=== PATIENT | male | born 1975 | race Hispanic/Latino ===

== ENCOUNTER → 2020-11-08 | Day surgery (SDC) | payer MEDICARE ==
[2020-11-05 08:29] LABS: BASOPHILS % 0.6 % (0.0-1.0); EOSINOPHILS # (AUTO) 0.1 (0.0-0.4); EOSINOPHILS % 1.7 % (0.0-6.0); LYMPHOCYTES # (AUTO) 1.7 (1.0-3.2); LYMPHOCYTES % 23.9 % (18.0-39.1); MEAN CORPUSCULAR HEMOGLOBIN 32.6 pg (28-32); MEAN CORPUSCULAR HGB CONC 31.7 g/dL (31-35); MEAN CORPUSCULAR VOLUME 102.8 fL (81-99); MONOCYTES # (AUTO) 0.7 (0.2-0.8); MONOCYTES % 9.7 % (4.4-11.3); NEUTROPHILS # (AUTO) 4.6 (2.1-6.9); PLATELET COUNT 176 x10e3/uL (140-360); RED BLOOD COUNT 3.99 x10e6/uL (4.3-5.7); RED CELL DISTRIBUTION WIDTH 14.4 % (11.7-14.4)
[2020-11-05 09:14] LABS: INR 0.96; PROTHROMBIN TIME 13.3 seconds (11.9-14.5)
[2020-11-05 09:15] LABS: PARTIAL THROMBOPLASTIN TIME 29.2 seconds (23.8-35.5)
[2020-11-05 09:24] LABS: ALBUMIN 3.5 g/dL (3.5-5.0); ALBUMIN/GLOBULIN RATIO 0.9 (0.8-2.0); ANION GAP 20.1 mmol/L (8-16); CREATININE, SERUM 10.85 mg/dL (0.72-1.25); POTASSIUM 5.1 mmol/L (3.5-5.1)
[2020-11-05 09:33] LABS: CALCIUM 8.8 mg/dL (8.4-10.2)
[~2020-11-08] VITALS: Ht 170.2 cm; Wt 83.9 kg
[2020-11-08] VITALS (12 sets, daily range): BP systolic 106–134; BP diastolic 61–84
[~2020-11-08] MED LIST: AMLODIPINE BESY10 MG PO; ASPIRIN 325 MG TAB ONE; ASPIRIN81 M2 PO; BIVALRIUDIN 250 MG/VIAL VIAL IV ONE; CALCIUM ACETAT667 MG PO; CLOPIDOGREL BISULFATE 75 MG TAB ONE; FENTANYL CITRATE/PF 100MCG/2 ML INJ ONE; FUROSEMIDE40 MG PO; IOPAMIDOL 300MG/ML 100 ML INFUS..BTL IV ONE; LIDOCAINE HCL 2% LOCAL 20 ML VIAL ONE; LIPITOR20 MG; METOCLOPRAMIDE10 MG PO; METOPROLOL SUCC50 MG PO; MIDAZOLAM HCL 2 MG/2 ML VIAL ONE; NEURONTIN300 MG PO; PIOGLITAZONE HC45 MG PO; RENVELA0.8 GM PO; SODIUM BICARBO650 MG PO; SODIUM CHLORIDE 0.9% 1000ML 1,000 ML ONE; SODIUM CHLORIDE 0.9% 1000ML 3,000 ML ONE; SODIUM CHLORIDE 0.9% 50ML 50 ML ONE; TUMS200 MG PO; VERAPAMIL HCL 2.5 MG/ML 2 ML VIAL ONE; Z.0.LANTUS100 UNIT/1 SQ; Z.0.LISINOPRIL20 MG PO; Z.0.METFORMIN HCL100 PO; Z.0.TRICOR145 MG PO; [UNRECOGNIZED DRUG - OTHER] PO; humalog SQ
== END | disposition home or self-care (01) ==
LOC: CATH LAB 07:15
PROVIDERS: ATTEND Internal Medicine Cardiovascular Disease
DX: I70.203 Unspecified atherosclerosis of native arteries of extremities, bilateral legs (principal); L97.529 Non-pressure chronic ulcer of other part of left foot with unspecified severity; L97.519 Non-pressure chronic ulcer of other part of right foot with unspecified severity; E11.22 Type 2 diabetes mellitus with diabetic chronic kidney disease; N18.6 End stage renal disease; Z88.8 Allergy status to other drugs, medicaments and biological substances; Z01.812 Encounter for preprocedural laboratory examination; Z20.822 Contact with and (suspected) exposure to COVID-19; Z79.4 Long term (current) use of insulin; Z79.82 Long term (current) use of aspirin
CPT/HCPCS: 36415; 37229; 80053; 85025; 85610; 85730; C1724; C1760; C1769 ×3; C1887; J0583; J2001; J2250; J3010; J7030; Q9967; U0002; 75630; 99152; 99153

== ENCOUNTER → 2020-12-30 | Day surgery (SDC) | payer MEDICARE ==
[2020-12-27 10:45] LABS: BASOPHILS % 0.5 % (0.0-1.0); EOSINOPHILS # (AUTO) 0.3 (0.0-0.4); EOSINOPHILS % 4.2 % (0.0-6.0); HEMATOCRIT 38.4 % (38.2-49.6); HEMOGLOBIN 12.3 g/dL (14.0-18.0); LYMPHOCYTES # (AUTO) 1.4 (1.0-3.2); MEAN CORPUSCULAR HEMOGLOBIN 32.8 pg (28-32); MEAN CORPUSCULAR VOLUME 102.4 fL (81-99); MONOCYTES # (AUTO) 0.3 (0.2-0.8); MONOCYTES % 5.4 % (4.4-11.3); NEUTROPHILS # (AUTO) 4.2 (2.1-6.9); NEUTROPHILS % 66.7 % (38.7-80.0); PLATELET COUNT 157 x10e3/uL (140-360); RED BLOOD COUNT 3.75 x10e6/uL (4.3-5.7); RED CELL DISTRIBUTION WIDTH 15.4 % (11.7-14.4)
[2020-12-27 11:05] LABS: INR 0.83
[2020-12-27 11:06] LABS: PARTIAL THROMBOPLASTIN TIME 30.4 seconds (23.8-35.5)
[2020-12-27 11:16] LABS: ALBUMIN 3.8 g/dL (3.5-5.0); ALBUMIN/GLOBULIN RATIO 0.8 (0.8-2.0); ANION GAP 18.8 mmol/L (8-16); CALCIUM 8.9 mg/dL (8.4-10.2); CREATININE, SERUM 6.45 mg/dL (0.72-1.25); POTASSIUM 4.8 mmol/L (3.5-5.1)
[2020-12-30] VITALS (9 sets, daily range): BP systolic 106–127; BP diastolic 54–85
[~2020-12-30] VITALS: Ht 167.6 cm; Wt 84.8 kg
[~2020-12-30] MED LIST changes: +BARIATRIC MV-I1 EACH PO; +HYDROCODONE/APAP 5MG-325MG TAB ONE
== END | disposition home or self-care (01) ==
LOC: CATH LAB 07:54
PROVIDERS: ATTEND Internal Medicine Cardiovascular Disease
DX: I70.221 Atherosclerosis of native arteries of extremities with rest pain, right leg (principal); E11.22 Type 2 diabetes mellitus with diabetic chronic kidney disease; I12.0 Hypertensive chronic kidney disease with stage 5 chronic kidney disease or end stage renal disease; N18.6 End stage renal disease; E78.5 Hyperlipidemia, unspecified; Z99.2 Dependence on renal dialysis; Z01.812 Encounter for preprocedural laboratory examination; Z20.822 Contact with and (suspected) exposure to COVID-19; Z79.4 Long term (current) use of insulin; Z79.82 Long term (current) use of aspirin; Z89.412 Acquired absence of left great toe; Z89.421 Acquired absence of other right toe(s); Z82.49 Family history of ischemic heart disease and other diseases of the circulatory system; Z83.3 Family history of diabetes mellitus
CPT/HCPCS: 36247; 36415; 37231; 80053; 85025; 85610; 85730; C1724; C1760; C1769 ×3; C1874; C1887 ×2; J0583; J2001; J2250; J3010; J7030; Q9967; U0002; 99152; 99153

== ENCOUNTER → 2022-04-06 | Day surgery (SDC) | payer MEDICARE, OTHER ==
[2022-04-03 10:59] LABS: BASOPHILS % 0.6 % (0.0-1.0); EOSINOPHILS # (AUTO) 0.2 (0.0-0.4); EOSINOPHILS % 2.8 % (0.0-6.0); HEMATOCRIT 39.7 % (38.2-49.6); HEMOGLOBIN 12.7 g/dL (14.0-18.0); LYMPHOCYTES # (AUTO) 1.5 (1.0-3.2); LYMPHOCYTES % 21.7 % (18.0-39.1); MEAN CORPUSCULAR HEMOGLOBIN 33.4 pg (28-32); MEAN CORPUSCULAR VOLUME 104.5 fL (81-99); MONOCYTES # (AUTO) 0.5 (0.2-0.8); MONOCYTES % 7.6 % (4.4-11.3); NEUTROPHILS # (AUTO) 4.5 (2.1-6.9); NEUTROPHILS % 67.2 % (38.7-80.0); PLATELET COUNT 178 x10e3/uL (140-360); RED CELL DISTRIBUTION WIDTH 13.9 % (11.7-14.4)
[2022-04-03 11:19] LABS: INR 0.89; PARTIAL THROMBOPLASTIN TIME 31.5 seconds (23.8-35.5); PROTHROMBIN TIME 12.9 seconds (11.9-14.5)
[2022-04-03 11:24] LABS: ALANINE AMINOTRANSFERASE 36 IU/L (0-55); ALBUMIN 3.3 g/dL (3.5-5.0); ALBUMIN/GLOBULIN RATIO 0.7 (0.8-2.0); ALKALINE PHOSPHATASE 73 IU/L (40-150); ANION GAP 19.5 mmol/L (8-16); BLOOD UREA NITROGEN 40 mg/dL (7-26); BUN/CREATININE RATIO 5 (6-25); CALCIUM 8.9 mg/dL (8.4-10.2); CARBON DIOXIDE 35 mmol/L (22-29); CHLORIDE 97 mmol/L (98-107); CHOLESTEROL 98 MD/DL (0-199); GLUCOSE 108 mg/dL (74-118); HDL CHOLESTEROL 33 MG/DL (40-60); LDL CHOLESTEROL 46 MG/DL (60-130); SODIUM 145 mmol/L (136-145); TRIGLYCERIDES 94 MG/DL (0-149)
[2022-04-03 11:38] LABS: POTASSIUM 6.5 mmol/L (3.5-5.1)
[2022-04-06] VITALS (10 sets, daily range): BP systolic 125–157; BP diastolic 16–72
[~2022-04-06] VITALS: Ht 170.2 cm; Wt 90.7 kg
[~2022-04-06] MED LIST changes: +ASPIRIN81 MG PO; +AURYXIA210 MG PO; +BASAGLAR K100 UNIT/1 SQ; +CLOPIDOGREL75 MG PO; -HYDROCODONE/APAP 5MG-325MG TAB ONE; +LEXAPRO10 MG PO; +LIDOCAINE HCL 1% LOCAL INJ 20 ML VIAL ONE; -LIDOCAINE HCL 2% LOCAL 20 ML VIAL ONE; +MIDODRINE PO; +MONTELUKAST SOD10 MG PO; +NITROGLYCERIN/D5W 200 MCG/ML 0 ML ONE; +NITROGLYCERIN/D5W 200 MCG/ML 250 ML ONE; -SODIUM CHLORIDE 0.9% 1000ML 3,000 ML ONE; -SODIUM CHLORIDE 0.9% 50ML 50 ML ONE; +[UNRECOGNIZED DRUG - OTHER] PO
== END | disposition home or self-care (01) ==
LOC: CATH LAB 07:53
PROVIDERS: ATTEND Internal Medicine Cardiovascular Disease
DX: I70.228 Atherosclerosis of native arteries of extremities with rest pain, other extremity (principal); Z01.812 Encounter for preprocedural laboratory examination; Z20.822 Contact with and (suspected) exposure to COVID-19; Z79.82 Long term (current) use of aspirin; Z79.02 Long term (current) use of antithrombotics/antiplatelets; Z79.4 Long term (current) use of insulin; Z79.899 Other long term (current) drug therapy
CPT/HCPCS: 0223U; 36247; 36415 ×2; 75625; 75716; 76937; 80053; 80061; 84132; 85025; 85610; 85730; C1760; C1769 ×2; C1874; C1887; C2623; J2001; J2250; J3010; J7030; Q9967; 75630; 99152; 99153; J0583